=== PATIENT | male | born 1975 | race Caucasian/White ===

== ENCOUNTER 2016-05-26 06:21 | Emergency (ER) | payer OTHER ==
[2016-05-26] MEDS ORDERED: HYDROmorphONE/DILAUDID 1 MG/ML SYR IVP ONE (06:53)
[2016-05-26] MEDS ORDERED: HYDROmorphONE/DILAUDID 1 MG/ML SYR ONE (06:53)
--- NOTE | 2016-05-26 07:14 | EDPHY ---
HPI/HX/ROS/PE/MDM Narrative: CHIEF COMPLAINT: Left shoulder pain. HPI: The patient is a 40-year-old male with a history of recurrent left shoulder dislocations and left labrum repair who presents with left shoulder pain that began this morning after he fell down the stairs. He has severe pain with range of motion. This does not feel exactly like his previous dislocations. He denies numbness or weakness down his arm. He is able to move his hand and fingers normally. He admits mild neck pain. He did not hit his head. He has no other complaints this morning. REVIEW OF SYSTEMS: Aside from elements discussed in the HPI, a comprehensive 10-point review of systems was reviewed and is negative. PMH: Left shoulder dislocations, left labrum repair. 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 PHYSICAL EXAM: General: Patient is alert, in no acute distress. ENT: Eyes are normal to inspection. ENT inspection normal. Neck: Normal inspection. Full range of motion. Respiratory: No respiratory distress. Breath sounds normal bilaterally. Cardiovascular: Regular rate and rhythm. Strong peripheral pulses. Abdomen: The abdomen is nontender to palpation. There are no peritoneal signs. There are normal bowel sounds. Back: Normal to inspection. No tenderness to palpation. Skin: Normal color. No rash. Warm and dry. Extremities: Normal appearance. Left shoulder: normal appearance, non-tender. Neuro: Oriented x3. Normal motor function. Normal sensory function. Portions of this note were transcribed by an ED scribe. I personally performed the history, physical exam, and medical decision making; and confirm the accuracy of the information in the transcribed note. ED Course: 40-year-old male with a history of left shoulder dislocations and labrum surgery presents with left shoulder pain. He tripped over his dog this morning and fell down the stairs, injuring the arm. This does not feel exactly like his previous dislocations. He has pain with range of motion but is nontender. He has no other complaints at this time. Left shoulder x-ray ordered. An IV was established. 1mg IV Dilaudid administered for pain. 0725: Patient's pain returning. 30mg IV Toradol administered. I independently reviewed the patient's images on the PACS system. Please see Imaging section for radiologist reports. 0830: Discussed x-ray results with radiologist. He reports a single left rib fracture of 2nd rib and possible glenoid fossa fracture. Left shoulder CT ordered. 100mcg IV Fentanyl administered. 0925: CT results conveyed to me negative by radiologist. No fractures, no dislocation. I have discussed these results with the patient at this time. He is comfortable with discharge and has been provided orthopedic surgeon referral. MDM: This patient presents with recurrent shoulder pain after fall down stairs last night. There is no evidence of dislocation, fracture, clavicle fracture, scapular fracture, neurovascular injury. The patient will be given a short course of pain medicine and instructed to follow up with orthopedics for further workup. He is comfortable this plan. I see no signs of other traumatic injury per - Data Points Imaging Results: Imaging Impressions Shoulder X-Ray 05/26/16 06:31 Impression: 1. Irregularity associated with the glenoid portion of the scapula suspicious for fracture. 2. Nondisplaced fracture anterolateral left second rib. Medications Given: Discontinued Medications Fentanyl (Sublimaze) 100 mcg IVP EDNOW ONE Stop: 05/26/16 07:59 Last Admin: 05/26/16 08:07 Dose: 100 mcg Fentanyl (Sublimaze) 100 mcg IVP EDNOW ONE Stop: 05/26/16 08:36 Last Admin: 05/26/16 08:39 Dose: 100 mcg Hydromorphone HCl (Dilaudid) 1 mg IVP EDNOW ONE Stop: 05/26/16 06:54 Last Admin: 05/26/16 07:00 Dose: 1 mg Ketorolac Tromethamine (Toradol) 30 mg IVP EDNOW ONE Stop: 05/26/16 07:26 Last Admin: 05/26/16 07:28 Dose: 30 mg General Time Seen by Provider: 05/26/16 06:47 Initial Vital Signs: Initial Vital Signs Temperature (C) 36.7 C 05/26/16 06:24 Heart Rate 88 05/26/16 06:24 Respiratory Rate 24 H 05/26/16 06:24 Blood Pressure 123/69 H 05/26/16 06:24 O2 Sat (%) 95 05/26/16 06:24 O2 Delivery Mode Room Air Allergies/Adverse Reactions: No Known Allergies Allergy (Unverified 05/26/16 06:24) Home Medications: Medication Instructions Recorded oxyCODONE IR [Oxycodone Ir (*)] 5 - 10 mg PO Q6 #10 tab 05/26/16 Departure - Departure Disposition: Home, Routine, Self-Care Clinical Impression: Shoulder pain Qualifiers: Laterality: left Chronicity: acute Qualified Code(s): M25.512 - Pain in left shoulder Condition: Good Instructions: Shoulder Pain (ED) Additional Instructions: Follow up with your orthopedic surgeon for reevaluation if pain persists. If you need an orthopedic surgeon you have been given the telephone number of Dr. Macias, orthopedics. Return to the emergency department for any serious worsening of condition. Referrals: Seymour Macias MD [Medical Doctor] - As per Instructions Prescriptions: oxyCODONE IR [Oxycodone Ir (*)] 5 - 10 mg PO Q6 #10 tab Report Scribed for: Adrian Cason Report Scribed by: Matthew Lucas Date of Report: 05/26/16 Time of Report: 07:15
[2016-05-26] MEDS ORDERED: KETOROLAC 30 MG/1 ML SDV IVP ONE (07:25)
[2016-05-26] MEDS ORDERED: fentaNYL 100 MCG/2 ML INJ IVP ONE ×2 (07:58→08:35)
[2016-05-26 08:18] VITALS: RESP 16
[2016-05-26 09:42] VITALS: BP 135/63; PULSE 64; TEMP 97.9; O2SAT 95
== END 2016-05-26 09:42 | disposition home or self-care (01) ==
DX: S49.92XA Unspecified injury of left shoulder and upper arm, initial encounter (principal); W10.8XXA Fall (on) (from) other stairs and steps, initial encounter; Y93.89 Activity, other specified
CPT/HCPCS: 96374; J1170; J1885; J3010

== ENCOUNTER 2016-11-25 19:25 | Emergency (ER) | payer OTHER ==
[2016-11-25 19:31] VITALS: TEMP 98.6
--- NOTE | 2016-11-25 19:50 | EDPHY ---
H & P Smoking Status: Never smoked Time Seen by Provider: 11/25/16 19:43 HPI/ROS: CHIEF COMPLAINT: Back pain HISTORY OF PRESENT ILLNESS: Today at 1600 patient was trimming trees with a ladder when a tree branch broke and he landed on his butt on the grass. Immediately had low back pain radiating to his right calf which is severe. Worse with movement or standing. Started just after the fall. No head injury or loss of consciousness, no other injuries. REVIEW OF SYSTEMS: Eye: no change in vision ENT: no sore throat Cardiac: no chest pain or syncope Pulmonary: no cough or SOB Abdomen: no vomiting, diarrhea, abdominal pain Musculoskeletal: HPI Skin: no rash Neuro: no headache Constitutional: no fever : no urinary symptoms no incontinence A comprehensive 10 point review of systems is otherwise negative aside from elements mentioned in the history of present illness. PAST MEDICAL HISTORY: Tibial plateau fracture on the right, recurrent left shoulder dislocation Social history: Primary care is [facility] General Appearance: Alert and conversant, cooperative. Eyes: No scleral icterus. ENT, Mouth: Normal mucous membranes. Respiratory: Normal respiratory effort, breath sounds equal, lungs are clear to auscultation. Cardiovascular: Regular rate and rhythm. Gastrointestinal: Abdomen is soft and non tender. Neurological: Alert and oriented x3. Normally conversant. Face symmetric, normal movement and sensation in all extremities. Toes downgoing bilaterally and no clonus. Skin: Warm and dry, no rashes. Musculoskeletal: Lower to mid lumbar spine point tenderness, no cervical or thoracic midline tenderness. Pelvis is stable but tenderness with compression. Psychiatric: Not agitated. Emergency Department course/MDM: IV pain medication, lumbar spine x-ray and pelvis x-ray. 2005: Lumbar spine and pelvis x-ray personally interpreted is negative for fracture or dislocation. Given acute neurologic symptoms will proceed with MRI of the lumbar spine. 2144: Patient is received 4 mg morphine, Dilaudid 0.5 mg and 1 mg IV. 2149: MRI per Dr. Neal shows acutely herniated sub ligamentous disc at L4-5 on the right. Discussed with the patient at this time. Multiple doses of IV narcotics, will admit to the hospital for pain control and spine consultation. 2154: Discussed with Mariluz recommends toradol, decadron. Will consult but not be primary admitting service. 2156: Discussed with Mian will admit. (Naseem Segal) Constitutional: Initial Vital Signs Temperature (C) 37.0 C 11/25/16 19:29 Heart Rate 79 11/25/16 19:29 Respiratory Rate 18 11/25/16 19:29 Blood Pressure 141/97 H 11/25/16 19:29 O2 Sat (%) 95 11/25/16 19:29 O2 Delivery Mode Room Air Allergies/Adverse Reactions: No Known Allergies Allergy (Unverified 05/26/16 06:24) Home Medications: Medication Instructions Recorded Citalopram [CeleXA] 20 mg PO DAILY 11/25/16 Naproxen 500 mg PO BID #30 tablet 11/25/16 clonazePAM [klonoPIN (*)] 1 mg PO HS 11/25/16 methylPREDNISolone [Medrol Dose 1 each PO AD #30 ea 11/25/16 [place]] morphINE IR [morphINE IR 15 mg (*)] 15 mg PO Q4H PRN #10 tab 11/25/16 Medical Decision Making - Diagnostics Imaging Results: Imaging Impressions Lumbar Spine X-Ray 11/25/16 19:48 Impression: 1. Negative for vertebral body fracture with disk space loss seen in the lower lumbar spine. 2. Age-indeterminate fracture of left L3 transverse process. Pelvis X-Ray 11/25/16 19:48 Impression: Negative for pelvic fracture. Lumbar Spine MRI 11/25/16 20:05 Impression: 1. Subligamentous disk herniation at L4-L5, eccentric towards the right, with right lateral recess and right neural foraminal impingement. 2. Disk and endplate degenerative changes at the L4-L5 level. 3. See above report for findings at other levels. Results called and discussed with Naseem Segal M.D., on November 25, 2016 at 2141. Differential Diagnosis: Differential considered including but not limited to lumbar spine fracture, pelvic fracture, spinal cord injury, acute disc herniation. (Naseem Segal) Other Provider: 10:50 p.m.- The patient met with the admitting surgeon Dr. Pappas. He said he was actually feeling well currently and would like to go home. He says his pain is well managed and he would not like to be in the hospital. Dr. Pappas talked with Dr. Mcgraw who agrees that outpatient treatment is reasonable for this, recommends Medrol Dosepak, muscle relaxer, NSAID, pain medication for breakthrough with outpatient follow-up in his clinic. When I went to go over these instructions with the patient, he was not in his room. He had previously told us that his girlfriend was going to come and pick him up. However, we discovered that his girlfriend lives in [place]. He tried to leave the emergency department with his IV in place. The nurse found him and brought him back to the room and removed his IV. I was able to go over his discharge instructions and he will be discharged home. He asked for OxyContin, I told him I do not prescribe this. I have given him a prescription for morphine IR so that he can take Tylenol at its maximum dose. He was not happy with this. (Niharika Kendall) - Data Points Medications Given: Discontinued Medications Dexamethasone (Decadron Injection) 8 mg IVP EDNOW ONE Stop: 11/25/16 21:57 Last Admin: 11/25/16 22:22 Dose: 8 mg Hydromorphone HCl (Dilaudid) 1 mg IVP EDNOW ONE Stop: 11/25/16 20:12 Last Admin: 11/25/16 20:16 Dose: 1 mg Hydromorphone HCl (Dilaudid) 0.5 mg IVP EDNOW ONE Stop: 11/25/16 20:55 Last Admin: 11/25/16 20:59 Dose: 0.5 mg Hydromorphone HCl (Dilaudid) 1 mg IVP EDNOW ONE Stop: 11/25/16 21:45 Last Admin: 11/25/16 21:47 Dose: 1 mg Morphine Sulfate (Morphine) 4 mg IVP EDNOW ONE Stop: 11/25/16 19:56 Last Admin: 11/25/16 19:56 Dose: 4 mg Departure - Departure Disposition: Home, Routine, Self-Care Clinical Impression: Lumbar disc herniation with radiculopathy Condition: Good Instructions: Lumbar Disc Herniation (ED), Lower Back Exercises (ED) Referrals: Mahin Mcgraw MD [Medical Doctor] - LIANNE KULKARNI [Primary Care Provider] - As per Instructions Prescriptions: methylPREDNISolone [Medrol Dose [place]] 1 each PO AD #30 ea morphINE IR [morphINE IR 15 mg (*)] 15 mg PO Q4H PRN #10 tab PRN Reason: Pain, Breakthrough Naproxen 500 mg PO BID #30 tablet
[2016-11-25] MEDS ORDERED: HYDROmorphONE/DILAUDID 1 MG/ML INJ IVP ONE ×3 (20:11→21:44)
[2016-11-25 21:02] VITALS: RESP 16
[2016-11-25] MEDS ORDERED: HYDROmorphONE/DILAUDID 1 MG/ML INJ ONE (21:43)
[2016-11-25] MEDS ORDERED: DEXAMETHASONE 4 MG/ML VIAL IVP ONE (21:56)
[2016-11-25] MEDS ORDERED: KETOROLAC 15 MG/1 ML SDV IVP ONE (21:56)
[2016-11-25] MEDS ORDERED: HYDROCODONE/APAP 5/325 TAB PO PRN (21:59)
[2016-11-25] MEDS ORDERED: DIAZEPAM 5 MG TAB PO PRN (21:59)
[2016-11-25] MEDS ORDERED: ONDANSETRON 4 MG/2 ML VIAL IVP PRN (21:59)
[2016-11-25] MEDS ORDERED: ACETAMINOPHEN 325 MG TAB PO PRN (21:59)
[2016-11-25 22:15] VITALS: BP 128/78; PULSE 65; O2SAT 96
[2016-11-25] MEDS ORDERED: KETOROLAC 15 MG/1 ML SDV IVP SCH (22:15)
--- NOTE | 2016-11-25 22:54 | GHP ---
[f rep st] HISTORY AND PHYSICAL DATE OF ADMISSION: 11/25/2016 CHIEF COMPLAINT: Fell from ladder. HISTORY OF PRESENT ILLNESS: This patient is a 41-year-old man who was trimming trees when he fell off a ladder approximately 4 feet. He landed on his buttocks. He had radicular pain and presented to the emergency room. X-rays were obtained, followed by an MRI which showed a disk herniation. He is requiring larger amounts of pain control and has asked to come and admit him. PAST MEDICAL HISTORY: Back pain. PAST SURGICAL HISTORY: Rotator cuff, knee surgery, labrum repair, back injection. 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 FAMILY HISTORY: Noncontributory. REVIEW OF SYSTEMS: 10-point review of systems negative, except for right leg pain. PHYSICAL EXAMINATION: GENERAL: Pleasant, well-groomed man in street clothes stating needs to go get cell phone from car. HEENT: Normocephalic. No gross hearing deficits. Mucous membranes moist. Pupils equal and round. No scleral icterus. LUNGS: Clear to auscultation bilaterally. No increased work of breathing. CARDIAC: Regular rate. No peripheral edema. ABDOMEN: Bowel sounds present. Soft, nontender, nondistended. EXTREMITIES: Moves all extremities well. He does have pain when flexing his right lower leg. Otherwise 5/5 strength upper and lower extremities. NEUROLOGIC: 2 through 12 grossly intact. PSYCH: Mood and affect normal. RESULTS: I reviewed the results of his imaging. IMPRESSION AND PLAN: This patient is a 41-year-old with herniated lumbar disk. He was about to walk to his car. I discussed his case with Dr. Mcgraw who also reviewed his films. I gave the patient the opportunity to be admitted for pain control or going home, and the patient at this time prefers to go home. I discussed the case again with Dr. Kendall. If his pain can get controlled, then he will be discharged home. If note, I will place orders for him to be admitted on the Trauma service. /[id number]/MODL MTDD
[2016-11-26] MEDS ORDERED: ENOXAPARIN 40 MG/0.4 ML SYR SC SCH (09:00)
== END 2016-11-25 23:25 | disposition home or self-care (01) ==
LOC: UNDOADMOB 21:58
DX: S33.101A Dislocation of unspecified lumbar vertebra, initial encounter (principal); W20.8XXA Other cause of strike by thrown, projected or falling object, initial encounter
CPT/HCPCS: 96374; J1100; J1170

== ENCOUNTER 2017-02-09 13:27 | Inpatient (IN) | payer SELFPAY ==
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
[2017-02-09] MEDS ORDERED: LET GEL TOPICAL 1 EA SYR TP ONE (13:45)
[2017-02-09 13:46] LABS: PLATELET COUNT 389 10^3/uL (150-400)
[2017-02-09] MEDS ORDERED: HYDROmorphONE/DILAUDID 1 MG/ML INJ IVP ONE ×4 (14:19→17:04)
--- NOTE | 2017-02-09 14:21 | CPEKG ---
Heart Rate: 98 RR Interval: 612 P-R Interval: 156 QRSD Interval: 116 QT Interval: 348 QTC Interval: 445 P [place]: 86 QRS [place]: 89 T Wave [place]: 17 EKG Severity - ABNORMAL ECG - EKG Impression: SINUS RHYTHM EKG Impression: LEFT ATRIAL ABNORMALITY EKG Impression: NONSPECIFIC INTRAVENTRICULAR CONDUCTION DELAY Electronically Signed By: Naseem Segal 09-Feb-2017 15:18:30
[2017-02-09] MEDS ORDERED: KETAMINE 100 MG/10 ML SYR IVP ONE ×2 (16:04→17:03)
[2017-02-09] MEDS ORDERED: KETAMINE 200 MG/20 ML VIAL ONE ×2 (16:07→17:05)
[2017-02-09] MEDS ORDERED: ONDANSETRON DISINTEGRATING 4 MG TAB PO PRN (17:23)
[2017-02-09] MEDS ORDERED: IOPAMIDOL (ISOVUE-300) 100 ML BTL ONE (17:30)
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
[2017-02-09] MEDS ORDERED: NALOXONE HCL 0.4 MG/ML INJ IVP PRN (18:39)
--- NOTE | 2017-02-09 19:46 | SOAPPROG ---
ANGELA Progress Note Assessment/Plan: Assessment: Plan: 02/09/17 19:46 plan for OR tomorrow to fix left ankle Objective: Vital Signs Temp Pulse Resp BP Pulse Ox 36.8 C 81 18 140/92 H 100 02/09/17 17:09 02/09/17 17:44 02/09/17 17:44 02/09/17 17:44 02/09/17 17:44 ICD10 Worksheet Patient Problems: Problems Problem Status Onset Ankle fracture, left Acute Ankle fracture, right Acute Facial laceration Acute
[2017-02-09] MEDS: clonazePAM 0.5 MG TAB PO SCH (19:59)
[2017-02-09] MEDS: HYDROmorphONE/DILAUDID 6 MG/30 ML PCA IV PRN (21:52)
[2017-02-09] MEDS: LR 1,000 ML IV SCH (21:55)
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
[2017-02-10] MEDS: METHOCARBAMOL 500 MG TAB PO PRN (02:18)
[2017-02-10] MEDS: LORazepam 2 MG/ML INJ IVP PRN (03:10)
[2017-02-10] MEDS: HYDROmorphONE/DILAUDID 6 MG/30 ML PCA IV PRN (05:00)
[2017-02-10] MEDS: LR 1,000 ML IV SCH ×2 (05:03→13:59)
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
[2017-02-10] MEDS ORDERED: clonazePAM 0.5 MG TAB PO SCH (08:00)
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
[2017-02-10] MEDS: CITALOPRAM 20 MG TAB PO SCH (08:57)
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
[2017-02-10] MEDS: fentaNYL 100 MCG/2 ML INJ IVP PRN ×4 (18:29→20:07)
[2017-02-10] MEDS ORDERED: fentaNYL 100 MCG/2 ML INJ ONE ×3 (20:06→22:44)
[2017-02-10] MEDS ORDERED: PREGABALIN 150 MG CAP PO ONE (20:17)
[2017-02-10] MEDS ORDERED: ceFAZolin 2 GM/SWFI 2 GM/20 ML SYR IVP ONE (20:17)
[2017-02-10] MEDS ORDERED: ACETAMINOPHEN 500 MG TAB PO ONE (20:17)
[2017-02-10] MEDS ORDERED: MIDAZOLAM 2 MG/2 ML VIAL IVP ONE (20:26)
--- NOTE | 2017-02-10 20:28 | PDANEPAE ---
ANE History of Present Illness L tib fib ANE Past Medical History - Pulmonary History Hx Oxygen in Use at Home: No Hx Sleep Apnea: No Sleep Apnea Screening Result - Last Documented: Negative - Endocrine History Hx Diabetes: No ANE Review of Systems Review of systems is: negative Review of Systems: - Exercise capacity Exercise capacity: >=4 METS ANE Patient History - Allergies Allergies/Adverse Reactions: No Known Allergies Allergy (Verified 02/09/17 15:51) - Home Medications Home medications: home medication list seen and reviewed Home Medications: Citalopram [CeleXA] 20 mg PO DAILY 11/25/16 [Last Taken 02/08/17] clonazePAM [klonoPIN (*)] 1 mg PO HS 11/25/16 [Last Taken 02/06/17] Ibuprofen [Motrin (*)] 200 - 400 mg PO DAILY PRN 02/09/17 [Last Taken Unknown] Multivitamins [Multivitamin (*)] 1 each PO DAILY 02/09/17 [Last Taken Unknown] Naproxen 500 mg PO BID PRN 02/09/17 [Last Taken Unknown] oxyCODONE IR [Oxycodone Ir (*)] 10 mg PO BID PRN 02/09/17 [Last Taken Unknown] - NPO status NPO Status: no food or drink >8 hours NPO Since - Liquids (Date): 02/10/17 NPO Since - Liquids (Time): 08:00 NPO Since - Solids (Date): 02/10/17 NPO Since - Solids (Time): 08:00 - Anes Hx Anes Hx: no prior problems - Smoking Hx Smoking Status: Never smoked - Family Anes Hx Family Anes Hx: none ANE Labs/Vital Signs - Labs Result Diagrams: 02/09/17 13:30 02/09/17 13:30 - Vital Signs Blood Pressure: 122/98 Heart Rate: 72 Respiratory Rate: 15 O2 Sat (%): 99 Height: 177.8 cm Weight: 68.039 kg ANE Physical Exam - Airway Neck exam: FROM Mallampati Score: Class 1 Mouth exam: normal dental/mouth exam (chipped r front incisor) - Pulmonary Pulmonary: no respiratory distress - Cardiovascular Cardiovascular: regular rate and rhythym - ASA Status ASA Status: II ANE Anesthesia Plan Anesthesia Plan: GA w LMA Regional Anesthesia: single shot NB
[2017-02-10] MEDS ORDERED: ONDANSETRON 4 MG/2 ML VIAL ONE (20:35)
[2017-02-10] MEDS ORDERED: DEXAMETHASONE 4 MG/ML VIAL ONE (20:35)
[2017-02-10] MEDS ORDERED: LIDOCAINE 2% 100 MG/5 ML SYR ONE (20:35)
[2017-02-10] MEDS ORDERED: PROPOFOL 200 MG/20 ML VIAL ONE (20:36)
[2017-02-10] MEDS ORDERED: ROPIVACAINE HCL 150 MG/30 ML INJ ONE (20:38)
[2017-02-10] MEDS ORDERED: BUPIVACAINE 0.5% 30 ML SDV ONE (20:45)
[2017-02-10] MEDS ORDERED: POLYMYXIN B SULFATE 500,000 UNIT/10 ML SYR IRR ONE (20:45)
[2017-02-10] MEDS ORDERED: BACITRACIN 50,000 UNITS/10 ML SYR IRR ONE (20:46)
[2017-02-10] MEDS ORDERED: HYDROmorphONE/DILAUDID 2 MG/ML INJ ONE (21:27)
[2017-02-10] MEDS ORDERED: fentaNYL 100 MCG/2 ML INJ IVP PRN (22:09)
[2017-02-10] MEDS ORDERED: HYDROCODONE/APAP 5/325 TAB PO PRN (22:09)
[2017-02-10] MEDS ORDERED: DEXAMETHASONE 4 MG/ML VIAL IVP PRN (22:09)
[2017-02-10] MEDS ORDERED: HYDROmorphONE/DILAUDID 1 MG/ML INJ IVP PRN (22:09)
[2017-02-10] MEDS ORDERED: NALOXONE HCL 0.4 MG/ML INJ IVP PRN (22:09)
[2017-02-10] MEDS ORDERED: ACETAMINOPHEN 500 MG TAB PO PRN (22:09)
[2017-02-10] MEDS ORDERED: OXYCODONE/APAP 5/325 TAB PO PRN (22:09)
[2017-02-10] MEDS ORDERED: PROMETHAZINE HCL 25 MG/ML INJ IVP PRN (22:09)
--- NOTE | 2017-02-10 22:13 | POSTANESTH ---
Post Anesthetic Evaluation Cardiovascular Status: Normal, Stable, Similar to Pre-Op Cond Respiratory Status: Normal, Stable, Similar to Pre-op Cond. Level of Consciousness/Mental Status: Can Participate in Eval, Moderately Sleepy Pain Control: Adequate, Prn Tx Ordered Nausea/Vomiting Control: Adequate, Prn Tx Ordered Complications Possibly Related to Anesthesia: None Noted
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
[2017-02-10] MEDS ORDERED: HYDROmorphONE/DILAUDID 1 MG/ML INJ ONE (22:45)
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
[2017-02-10] MEDS: clonazePAM 0.5 MG TAB PO SCH (23:52)
[2017-02-11] MEDS: METHOCARBAMOL 500 MG TAB PO PRN ×3 (04:43→21:03)
[2017-02-11 05:04] LABS: PLATELET COUNT 269 10^3/uL (150-400)
[2017-02-11] MEDS: oxyCODONE IR 5 MG TAB PO PRN ×3 (05:35→21:03)
[2017-02-11] MEDS: LORazepam 2 MG/ML INJ IVP PRN (05:54)
[2017-02-11] MEDS: NICOTINE 7 MG/24 HR PATCH TD SCH (06:19)
[2017-02-11] MEDS: ceFAZolin 2 GM/DEXTROSE 100 ML IV SCH ×3 (06:20→21:06)
[2017-02-11] MEDS: HYDROmorphONE/DILAUDID 6 MG/30 ML PCA IV PRN ×3 (06:30→23:28)
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
[2017-02-11] MEDS: CITALOPRAM 20 MG TAB PO SCH (08:56)
--- NOTE | 2017-02-11 12:46 | SOAPPROG ---
ANGELA Progress Note Assessment/Plan: Assessment: Plan: 02/09/17 19:46 plan for OR tomorrow to fix left ankle Subjective: states he feels better but still has significant pain boot in place as well as dressings foot NVI cont pain meds and NWB Objective: Vital Signs Temp Pulse Resp BP Pulse Ox 36.5 C 67 16 117/91 H 97 02/11/17 11:22 02/11/17 11:22 02/11/17 11:22 02/11/17 11:22 02/11/17 11:22 Laboratory Results 02/11/17 04:25 02/11/17 04:25 02/10/17 02/11/17 02/12/17 05:59 05:59 05:59 Intake Total 1815 3190 Output Total 2227 600 Balance 1815 965 -600 ICD10 Worksheet Patient Problems: Problems Problem Status Onset Ankle fracture, left Acute Ankle fracture, right Acute Facial laceration Acute
[2017-02-11] MEDS: LR 1,000 ML IV SCH (13:24)
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
[2017-02-11] MEDS: ACETAMINOPHEN 500 MG TAB PO SCH ×2 (18:19→21:03)
[2017-02-11] MEDS: clonazePAM 0.5 MG TAB PO SCH (21:02)
[2017-02-12] MEDS: METHOCARBAMOL 500 MG TAB PO PRN ×3 (05:06→22:11)
[2017-02-12] MEDS: oxyCODONE IR 5 MG TAB PO PRN ×5 (05:06→22:12)
[2017-02-12] MEDS: ACETAMINOPHEN 500 MG TAB PO SCH ×3 (09:00→20:47)
[2017-02-12] MEDS: CITALOPRAM 20 MG TAB PO SCH (09:01)
[2017-02-12] MEDS: NICOTINE 7 MG/24 HR PATCH TD SCH ×2 (09:01→15:51)
[2017-02-12] MEDS: ENOXAPARIN 40 MG/0.4 ML SYR SC SCH (09:01)
[2017-02-12] MEDS ORDERED: PNEUMOCOCCAL 0.5ML VACCINE VIAL IM ONE (11:05)
[2017-02-12] MEDS ORDERED: FLU VACC QS 2017-18 (3YR+)/PF 0.5 ML SYR (FLUARIX QUAD) IM ONE (11:05)
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
--- NOTE | 2017-02-12 14:02 | SOAPPROG ---
ANGELA Progress Note Assessment/Plan: Assessment: Plan: 02/09/17 19:46 plan for OR tomorrow to fix left ankle Subjective: states he's feeling better dressing C&D with foot NVI cont pain meds will FU in office Objective: Vital Signs Temp Pulse Resp BP Pulse Ox 36.7 C 77 17 93/43 L 94 02/12/17 10:00 02/12/17 10:00 02/12/17 10:00 02/12/17 10:00 02/12/17 10:00 Laboratory Results 02/11/17 04:25 02/11/17 04:25 02/11/17 02/12/17 02/13/17 05:59 05:59 05:59 Intake Total 3190 4.3 Output Total 7316 3845 Balance 965 -4835.7 ICD10 Worksheet Patient Problems: Problems Problem Status Onset Ankle fracture, left Acute Ankle fracture, right Acute Facial laceration Acute
--- NOTE | 2017-02-12 16:04 | ASMTCMCOM ---
CM Note CM Note Notes: Patient can't find his cp and all his #'s are on it. We went through his backpack and clothing. Found his wallet but no phone. Security did not find a phone and the PD that brought him to hospital did not see a cp in his car. Car is impounded at [facility]. Patient reports that his ex-Girlfriend is presently in [place] and will be back in [place] Monday. Contacted his mother Isha, , in [place]. She wanted to drive so she would have a car to bring him and his things back to [place]. Isha reports that patient was on Medicaid when in [place]. He reports that he started a new job in [place], at [employer] and should have a paycheck but doesn't know how to reach them re: his hospitalization. Mother says that it will take her 31/2 days to get to [place]. I impressed upon her that he no longer needed hospitalization and needed a plan for discharge.She is deciding whether to fly or drive. Date Signed: 02/12/2017 04:04 PM Electronically Signed By:Génesis Morales LCSW
[2017-02-12] MEDS: HYDROmorphone HCL/NS/PF 0.4 MG/2 ML SYR IVP PRN ×2 (16:32→20:48)
[2017-02-12] MEDS: clonazePAM 0.5 MG TAB PO SCH (20:48)
[2017-02-12] MEDS: traMADol 50 MG TAB PO PRN (20:48)
[2017-02-13] MEDS: oxyCODONE IR 5 MG TAB PO PRN ×5 (04:15→21:29)
[2017-02-13] MEDS: HYDROmorphone HCL/NS/PF 0.4 MG/2 ML SYR IVP PRN ×4 (07:26→20:03)
[2017-02-13] MEDS: CITALOPRAM 20 MG TAB PO SCH (08:39)
[2017-02-13] MEDS: ACETAMINOPHEN 500 MG TAB PO SCH ×3 (08:40→21:29)
[2017-02-13] MEDS: ENOXAPARIN 40 MG/0.4 ML SYR SC SCH (08:41)
[2017-02-13] MEDS: NICOTINE 7 MG/24 HR PATCH TD SCH (08:42)
[2017-02-13] MEDS: METHOCARBAMOL 500 MG TAB PO PRN ×2 (10:37→21:29)
[2017-02-13] MEDS: traMADol 50 MG TAB PO PRN ×2 (11:14→20:04)
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
--- NOTE | 2017-02-13 15:17 | ASMTCMCOM ---
CM Note CM Note Notes: Spoke to patient, he reports that his mother is in route to [place] and will hopefully arrive Monday. PT reports that patient needs a walker for mobility at this time. Mother wants to drive patient and his belongings back to [place]. Date Signed: 02/13/2017 03:16 PM Electronically Signed By:Génesis Morales LCSW
[2017-02-13] MEDS: clonazePAM 0.5 MG TAB PO SCH (20:04)
[2017-02-14] MEDS: oxyCODONE IR 5 MG TAB PO PRN ×6 (01:56→21:34)
[2017-02-14] MEDS: traMADol 50 MG TAB PO PRN ×2 (01:56→15:59)
[2017-02-14] MEDS: METHOCARBAMOL 500 MG TAB PO PRN ×2 (05:58→15:58)
--- NOTE | 2017-02-14 09:24 | SOAPPROG ---
ANGELA Progress Note Assessment/Plan: Assessment: Plan: 02/09/17 19:46 plan for OR tomorrow to fix left ankle Subjective: sleeping comfortably FU in office Objective: Vital Signs Temp Pulse Resp BP Pulse Ox 36.6 C 63 16 115/79 94 02/14/17 07:58 02/14/17 07:58 02/14/17 07:58 02/14/17 07:58 02/14/17 07:58 Laboratory Results 02/14/17 04:34 02/11/17 04:25 02/13/17 02/14/17 02/15/17 05:59 05:59 05:59 Intake Total 1150 700 Output Total 9635 9945 Hddzfnl -9420 -5218 ICD10 Worksheet Patient Problems: Problems Problem Status Onset Ankle fracture, left Acute Ankle fracture, right Acute Facial laceration Acute
[2017-02-14] MEDS: ACETAMINOPHEN 500 MG TAB PO SCH ×3 (09:57→21:33)
[2017-02-14] MEDS: NICOTINE 7 MG/24 HR PATCH TD SCH (09:57)
[2017-02-14] MEDS: CITALOPRAM 20 MG TAB PO SCH (09:58)
[2017-02-14] MEDS: ENOXAPARIN 40 MG/0.4 ML SYR SC SCH (09:59)
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
--- NOTE | 2017-02-14 17:14 | ASMTCMCOM ---
CM Note CM Note Notes: Pt mother Isha will arrive in [place] this evening. Pt will d/c tomorrow, he is securing walker from [employer]. Isha called [employer] today to pay $65.95 for pt d/c medications. Of note: Isha's phone number is incorrect in prior CM note it is [phone]. D/c plan of care: D/c tomorrow with mother who will drive him to [place]. Date Signed: 02/14/2017 05:14 PM Electronically Signed By:LÓPEZ Feldman
[2017-02-14] MEDS: clonazePAM 0.5 MG TAB PO SCH (21:33)
[2017-02-14 23:03] VITALS: RESP 16
[2017-02-15] MEDS: oxyCODONE IR 5 MG TAB PO PRN ×4 (01:38→13:43)
[2017-02-15 07:53] VITALS: BP 125/82; PULSE 70; TEMP 97.5; O2SAT 96
[2017-02-15] MEDS: METHOCARBAMOL 500 MG TAB PO PRN (08:10)
[2017-02-15] MEDS: traMADol 50 MG TAB PO PRN (08:11)
[2017-02-15] MEDS: NICOTINE 7 MG/24 HR PATCH TD SCH (09:36)
[2017-02-15] MEDS: ACETAMINOPHEN 500 MG TAB PO SCH (09:37)
[2017-02-15] MEDS: CITALOPRAM 20 MG TAB PO SCH (09:37)
[2017-02-15] MEDS: ENOXAPARIN 40 MG/0.4 ML SYR SC SCH (09:38)
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
--- NOTE | 2017-02-15 15:02 | ASMTCMCOM ---
CM Note CM Note Notes: Pt medically stable for d/c with mother support. Pt [place] tara is pending w Anish Eastman per [employer]. Pt mother paid for d/c meds. Pt and mother plan to drive to [place] where pt will apply for Mdcd. Date Signed: 02/15/2017 03:02 PM Electronically Signed By:LÓPEZ Feldman
[2017-02-15] MEDS ORDERED: IBUPROFEN 200 MG TAB PO ONE (15:17)
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
== END 2017-02-15 16:00 | disposition home or self-care (01) | DRG 494 ==
LOC: EDUNIT# → F3N 17:42
PROVIDERS: ADMIT Surgery; ATTEND Surgery
PROC: 0QBM0ZZ Excision of Left Tarsal, Open Approach (ICD-10-PCS; principal; 2017-02-09)
PROC: 0QSK04Z Reposition Left Fibula with Internal Fixation Device, Open Approach (ICD-10-PCS; principal; 2017-02-09)
DX: S82.832A Other fracture of upper and lower end of left fibula, initial encounter for closed fracture (principal); S92.102A Unspecified fracture of left talus, initial encounter for closed fracture; S92.141A Displaced dome fracture of right talus, initial encounter for closed fracture; V47.5XXA Car driver injured in collision with fixed or stationary object in traffic accident, initial encounter; Y92.410 Unspecified street and highway as the place of occurrence of the external cause; R56.9 Unspecified convulsions; F41.9 Anxiety disorder, unspecified; F17.210 Nicotine dependence, cigarettes, uncomplicated; F12.90 Cannabis use, unspecified, uncomplicated
CPT/HCPCS: 92507-GN; 92523-GN; 96374; 97116-GP; 97161-GP; 97166-GO; 97530-GP; 97535-GO; C1713; G0008; G0009; J0690; J1100; J1170; J1650; J2001; J2060; J2250; J2405; J2704; J2795; J3010; L4386; Q9967